=== PATIENT | female | born 1980 | race Caucasian/White ===

== ENCOUNTER → 2017-09-06 11:02 | Outpatient (CLI) | payer BC | END | disposition home or self-care (01) | LOC: D.MRI 09-04 14:00 | DX: R20.0 Anesthesia of skin (principal) ==

== ENCOUNTER → 2018-09-30 16:19 | Outpatient (CLI) | payer BC | END | disposition home or self-care (01) | LOC: D.LAB 16:19 | DX: M79.662 Pain in left lower leg (principal) ==